=== PATIENT | female | born 1970 | race Caucasian/White ===

== ENCOUNTER 2017-02-12 01:29 | Emergency (ER) ==
[2017-02-12 01:30] VITALS: BMI 35.2
[2017-02-12] MEDS ORDERED: SODIUM CHLORIDE 1,000 ML IV STA (01:33)
[2017-02-12] MEDS ORDERED: ZOFRAN 4 MG/2 ML IVP STA (01:34)
[2017-02-12] MEDS ORDERED: ZANTAC IV STA (01:34)
[2017-02-12] MEDS ORDERED: [UNRECOGNIZED DRUG - OTHER] IV STA (01:34)
[2017-02-12] MEDS ORDERED: DILAUDID 1 MG/ML SYRINGE IVP STA ×2 (01:34→06:32)
[2017-02-12] MEDS ORDERED: PROTONIX IV IVP STA (01:34)
[2017-02-12] MEDS ORDERED: GI COCKTAIL PO STA (01:35)
[2017-02-12 01:42] LABS: BASOPHILS % (AUTO) 0.5 % (0.0-3.0); EOSINOPHILS # (AUTO) 0.1 K/ul (0.0-0.7); EOSINOPHILS % (AUTO) 1.6 % (0.0-7.0); HEMATOCRIT 36.3 % (37.0-47.0); HEMOGLOBIN 12.7 g/dl (12.0-16.0); IMMATURE GRANULOCYTE % (AUTO) 0.2 % (0.0-5.0); LYMPHOCYTES # (AUTO) 2.6 K/uL (0.60-3.4); MEAN CORPUSCULAR HEMOGLOBIN 30.4 pg (27.0-31.0); MEAN CORPUSCULAR VOLUME 86.8 fl (81.0-99.0); MONOCYTES # (AUTO) 0.5 K/uL (0.4-2.0); MONOCYTES % (AUTO) 10.6 (0-10); NEUTROPHILS # (AUTO) 1.2 K/ul (2.0-6.9); NEUTROPHILS % (AUTO) 27.1; PLATELET COUNT 158 10^3/uL (140-440); RED BLOOD COUNT 4.18 10^6/ul (4.20-5.40); WHITE BLOOD COUNT 4.33 K/ul (4.6-10.2)
[2017-02-12 01:51] LABS: SERUM PREGNANCY INTERNAL QC INTERNAL QC VALID
[2017-02-12 02:08] LABS: ALANINE AMINOTRANSFERASE 57 U/L (12-78); ALBUMIN 3.9 g/dL (3.4-5.0); ALKALINE PHOSPHATASE 78 U/L (42-98); AMYLASE 70 U/L (25-115); ANION GAP 13.5; ASPARTATE AMINO TRANSFERASE 49 U/L (15-37); BILIRUBIN,TOTAL 0.31 mg/dL (0.00-1.20); BLOOD UREA NITROGEN 11 mg/dL (7-18); BUN/CREATININE RATIO 13.75; CALCIUM 9.3 mg/dL (8.2-10.2); CARBON DIOXIDE 28 mmol/L (21-32); CHLORIDE 104 mmol/L (98-107); CREATINE KINASE 82 U/L; GLUCOSE 102 mg/dL (70-110); LIPASE 51 U/L (8-78); POTASSIUM 3.5 mmol/L (3.5-5.10); SODIUM 142 mmol/L (136-145); TOTAL PROTEIN 6.5 g/dL (6.4-8.2)
[2017-02-12] MEDS ORDERED: PEPCID 20 MG in SODIUM CHLORIDE 50 ML IV STA (02:17)
[2017-02-12] MEDS ORDERED: TORADOL IVP STA (03:05)
[2017-02-12] MEDS ORDERED: PHENERGAN 25 MG/ML VIAL 12.5 MG in SODIUM CHLORIDE 50 ML IV STA (03:06)
[2017-02-12] MEDS ORDERED: PEPCID ONE (03:07)
[2017-02-12] MEDS ORDERED: PHENERGAN 25 MG/ML VIAL ONE (03:08)
--- NOTE | 2017-02-12 03:26 | CT ---
EXAM: CTA thorax HISTORY: Chest. Pain COMPARISON: CTA thorax 09/08/2014 FINDINGS: Contiguous axial images obtained through the thorax following uneventful administration i ntravenous contrast utilizing 3-mm collimation. Sagittal and coronal reconstructions were imaged an d reviewed. Source images were utilized create rotating 3-D MIP images... The thoracic inlet is un remarkable. The ascending aorta is mildly ectatic measuring 3.4 cm. The descending thoracic aorta the same level measures 3.2 cm. There is no evidence of pericardial effusion.. There is no evidenc e of hilar or mediastinal lymphadenopathy. Small axillary lymph nodes are noted bilaterally. . The re is no evidence of pulmonary embolus. The lungs are clear bilaterally.. Degenerative changes ar e seen in the mid dorsal spine. IMPRESSION: No evidence of pulmonary embolus or active pulmonary disease.. Mildly ectatic ascending aorta.2
--- NOTE | 2017-02-12 03:34 | CT ---
EXAM: CT scan abdomen pelvis with contrast HISTORY: Epigastric pain COMPARISON: CT scan abdomen pelvis 07/04/2015 FINDINGS: Contiguous axial images obtained from lung bases to the symphysis pubis following unevent ful administration intravenous contrast utilizing 3-mm collimation. Sagittal and coronal reconstruc tions were imaged and reviewed. There has been prior cholecystectomy. The right lobe of liver is en larged which may represent normal variant. There is diffuse fatty infiltration within the liver. T he pancreas, spleen and adrenal glands have normal enhanced CT appearance. The kidneys excrete cont rast in a normal fashion bilaterally. The abdominal aorta is normal in course and caliber.. Redemo nstrated are mild mesenteric inflammatory changes within the root of the small bowel. Findings may be related to mesenteritis.. There is no adjacent bowel wall thickening or obstructive changes. P ostoperative changes are seen within the rectosigmoid colon. There has been prior hysterectomy. The re is a small umbilical hernia containing only fat. IMPRESSION: Enlarged right lobe of the liver with fatty infiltration. Prior cholecystectomy. Redemonstrated is probable mesenteritis. Postoperative changes sigmoid colon.
[2017-02-12 03:54] VITALS: BP 114/74; TEMP 98.3
[2017-02-12] MEDS ORDERED: NORCO 7.5-325 PO STA (04:27)
--- NOTE | 2017-02-12 05:57 | ED.PDOC ---
General ED Provider: Dr. JESSENIA JOSE-ER Chief Complaint: Chest Pain Stated Complaint: cordellt hurts into my back--im sick at my stomach Time Seen by Physician: 01:55 Mode of Arrival: Walk-In Information Source: Patient Exam Limitations: No limitations Primary Care Provider: JESSENIA JOSE Nursing and Triage Documentation Reviewed and Agree: Yes GI Complaint Exam - Abdominal Pain Complaint/Exam Onset: Gradual Duration: several hours Symptoms Are: Still present Timing: Intermittent Initial Severity: Mild Current Severity: Moderate Location of Pain: Discrete, Epigastric Radiates To: Reports: Back Character: Reports: Dull, Aching, Burning Aggravating: Reports: None Alleviating: Reports: None Associated Signs and Symptoms: Reports: Chest pain, Decreased appetite, Nausea, Vomiting. Denies: Diaphoresis, Fever, Cough, Dizziness, Back pain, Constipation , Blood in stool, Dysuria, Urinary frequency, Decreased urine output, Vaginal bleeding, Vaginal discharge, Diarrhea, Sore throat, Decreased activity Related History: Reports: Similar episode Surgical Obstruction Risk Factors: Reports: Prior abdominal surgery Related Surgical History: Reports: Cholecystectomy Patient Rh Status: Unknown Differential Diagnoses: Bowel Obstruction, Gastroenteritis, Pancreatitis, Other Quality Indicator For Non-Traumatic Chest Pain/Syncope: EKG Performed Review of Systems - Review Of Systems Constitutional: Reports: No symptoms Eyes: Reports: No symptoms Ears, Nose, Mouth, Throat: Reports: No symptoms Respiratory: Reports: No symptoms Cardiac: Reports: Chest pain GI: Reports: Nausea, Vomiting : Reports: No symptoms Musculoskeletal: Reports: No symptoms Skin: Reports: No symptoms Neurological: Reports: No symptoms Endocrine: Reports: No symptoms Hematologic/Lymphatic: Reports: No symptoms All Other Systems: Reviewed and Negative Past Medical History - Past Medical History Previously Healthy: No Endocrine: Reports: Hypothyroid Cardiovascular: Reports: None Respiratory: Reports: None Hematological: Reports: None Gastrointestinal: Reports: Diverticulitis Genitourinary: Reports: None Neuro/Psych: Reports: None Musculoskeletal: Reports: None Cancer: Reports: None Last Menstrual Period: 2002 - Surgical History General Surgical History: Reports: None - Family History Family History: Reports: None - Social History Smoking Status: Never smoker Hx Substance Use: No Alcohol Screening: Occasionally Lives: With family - Immunizations Tetanus Shot up to Date: No Physical Exam - Physical Exam Appearance: Well-appearing, No pain distress, Well-nourished Pain Distress: Moderate Eyes: SAVANNA, EOMI, Conjunctiva clear ENT: Ears normal Neck: Supple Respiratory: Airway patent, Breath sounds clear, Breath sounds equal, Respirations nonlabored Cardiovascular: RRR, Pulses normal, No rub, No murmur GI/: Soft, Nontender, No masses, Bowel sounds normal, No Organomegaly Musculoskeletal: Normal strength, ROM intact, No edema, No calf tenderness Skin: Warm, Dry, Normal color Neurological: Sensation intact, Motor intact, Reflexes intact, Cranial nerves intact, Alert, Oriented Psychiatric: Affect appropriate, Mood appropriate Interpretation - Radiology Interpretation Radiology Interpretation By: Radiologist Radiology Results: Negative Exam Interpreted: CT Scan Re-Evaluation - Re-Evaluation Status: Improved Vital Signs Stable: Yes Pain Level: 1 Appearance: NAD Lungs: Clear Skin: Warm and Dry Neuro: Alert and Oriented X3 CV: RRR Critical Care Note - Critical Care Note Total Time (mins): 0 Course - Course Hematology/Chemistry: 02/12/17 01:35 02/12/17 01:35 Orders, Labs, Meds: Lab Review 02/12/17 02/12/17 01:35 05:33 WBC 4.33 L RBC 4.18 L Hgb 12.7 Hct 36.3 L MCV 86.8 MCH 30.4 MCHC 35.0 RDW Coeff of Giovana 13.1 Plt Count 158 Immature Gran % (Auto) 0.2 Neut % (Auto) 27.1 Lymph % (Auto) 60.0 H [place] % (Auto) 10.6 H Eos % (Auto) 1.6 Baso % (Auto) 0.5 Immature Gran # (Auto) 0.0 Neut # 1.2 L Lymph # 2.6 [place] # 0.5 Eos # 0.1 Baso # 0.0 Sodium 142 Potassium 3.5 Chloride 104 Carbon Dioxide 28 Anion Gap 13.5 BUN 11 Creatinine 0.80 Estimated GFR (MDRD) 78.00 BUN/Creatinine Ratio 13.75 Glucose 102 Calcium 9.3 Total Bilirubin 0.31 AST 49 H ALT 57 Alkaline Phosphatase 78 Total Creatine Kinase 82 69 Troponin I < 0.0100 < 0.0100 Total Protein 6.5 Albumin 3.9 Globulin 2.6 Albumin/Globulin Ratio 1.50 Amylase 70 Lipase 51 Serum , Qual Negative Orders Category Date Time Status EKG-(ED ONLY) Stat CARDIO 02/12/17 01:33 Completed EKG-(ED ONLY) Stat CARDIO 02/12/17 05:00 Ordered NPO REMINDER: IMAGING ONCE CARE 02/12/17 01:35 Completed ED IV/MEDIPORT/POWERPORT .ONCE EMERGENCY 02/12/17 01:33 Active AMYLASE Stat LAB 02/12/17 01:35 Completed CBC W/ AUTO DIFF Stat LAB 02/12/17 01:35 Completed COMPREHENSIVE METABOLIC PANEL Stat LAB 02/12/17 01:35 Completed CREATINE KINASE Stat LAB 02/12/17 01:35 Completed CREATINE KINASE Stat LAB 02/12/17 05:33 Completed LIPASE Stat LAB 02/12/17 01:35 Completed SERUM Stat LAB 02/12/17 01:35 Completed TROPONIN I Stat LAB 02/12/17 01:35 Completed TROPONIN I Stat LAB 02/12/17 05:33 Completed 0.9 % Sodium Chloride [Saline Flush] MEDS 02/12/17 01:33 Ordered 1 syr IVF PRN PRN Famotidine Inj [Pepcid] MEDS 02/12/17 03:07 Discontinued 20 mg .ROUTE .STK-MED ONE Famotidine Inj [Pepcid] 20 mg MEDS 02/12/17 02:17 Discontinued 0.9 % Sodium Chloride [Sodium Chloride] 50 ml IV ONCE Hydrocodone Bit/Acetaminophen [[place] 7.5-325] MEDS 02/12/17 04:27 Discontinued 1 tab PO ONCE STA Hydromorphone HCl [Dilaudid 1 mg/ml Syringe] MEDS 02/12/17 01:34 Discontinued 1 mg IVP ONCE STA Ketorolac Tromethamine [Toradol] MEDS 02/12/17 03:05 Discontinued 30 mg IVP ONCE STA Mag-Al Plus//Lidocaine [Gi Cocktail] MEDS 02/12/17 01:35 Discontinued 30 ml PO ONCE STA Ondansetron HCl/Pf [Zofran 4 mg/2 ml] MEDS 02/12/17 01:34 Discontinued 4 mg IVP ONCE STA Pantoprazole Sodium [Protonix IV] MEDS 02/12/17 01:34 Discontinued 40 mg IVP ONCE STA Promethazine HCl [Phenergan 25 mg/ml Vial] MEDS 02/12/17 03:08 Discontinued 25 mg .ROUTE .STK-MED ONE Promethazine HCl [Phenergan 25 mg/ml Vial] 12.5 mg MEDS 02/12/17 03:06 Discontinued 0.9 % Sodium Chloride [Sodium Chloride] 50 ml IV ONCE Ranitidine in 0.45 % Sodium [Zantac 50 mg/50 ml] 50 mg MEDS 02/12/17 01:34 Discontinued Premix 50 ml 1/2Ns 1 bag IV ONCE Sodium Chloride 0.9% [Sodium Chloride] 1,000 ml MEDS 02/12/17 01:33 Active IV 100 mls/hr CT ABDOMEN/PELVIS W CONTRAST Stat RADS 02/12/17 01:[address] CHEST PE PROTOCOL Stat RADS 02/12/17 01:35 Completed Medications Generic Name Dose Route Start Last Admin Trade Name Freq PRN Reason Stop Dose Admin Sodium Chloride 1,000 mls @ 100 mls/hr 02/12/17 01:33 02/12/17 02:15 Sodium Chloride IV 02/12/17 11:32 100 mls/hr .Q10H STA Administration Sodium Chloride 1 syr 02/12/17 01:33 02/12/17 03:05 Saline Flush IVF 1 syr PRN PRN Administration To flush IV Discontinued Medications Generic Name Dose Route Start Last Admin Trade Name Freq PRN Reason Stop Dose Admin Acetaminophen/Hydrocodone Bitart 1 tab 02/12/17 04:27 02/12/17 04:34 [place] 7.5-325 PO 02/12/17 04:28 1 tab ONCE STA Administration Al Hydroxide/Mg Hydroxide 30 ml 02/12/17 01:35 02/12/17 02:14 Gi Cocktail PO 02/12/17 01:36 30 ml ONCE STA Administration Hydromorphone HCl 1 mg 02/12/17 01:34 02/12/17 02:14 Dilaudid 1 Mg/Ml Syringe IVP 02/12/17 01:35 1 mg ONCE STA Administration Ranitidine HCl/Sodium Chloride 50 mls @ 100 mls/hr 02/12/17 01:34 02/12/17 02 :16 50 mg/ Sodium Chloride IV 02/12/17 02:03 Not Given ONCE STA Famotidine 20 mg/ Sodium 52 mls @ 100 mls/hr 02/12/17 02:17 02/12/17 03:04 Chloride IV 02/12/17 02:48 100 mls/hr ONCE STA Administration Promethazine HCl 12.5 mg/ 50.5 mls @ 75 mls/hr 02/12/17 03:06 02/12/17 03:18 Sodium Chloride IV 02/12/17 03:46 75 mls/hr ONCE STA Administration Ketorolac Tromethamine 30 mg 02/12/17 03:05 02/12/17 03:18 Toradol IVP 02/12/17 03:06 30 mg ONCE STA Administration Ondansetron HCl 4 mg 02/12/17 01:34 02/12/17 02:15 Zofran 4 Mg/2 Ml IVP 02/12/17 01:35 4 mg ONCE STA Administration Pantoprazole Sodium 40 mg 02/12/17 01:34 02/12/17 02:15 Protonix Iv IVP 02/12/17 01:35 40 mg ONCE STA Administration Vital Signs: Temp Pulse Resp BP Pulse Ox 02/12/17 03:53 98.3 F 51 L 18 114/74 94 L 02/12/17 01:50 97.9 F 53 L 18 137/99 H 96 Departure - Departure Time of Disposition: 06:18 Disposition: TSF SHORT-TRM HOSP Discharge Problem: Chest pain, Backache Instructions: Chest Pain (ED) Condition: Good Pt referred to PMD for follow-up: Yes Allergies/Adverse Reactions: Allergies morphine Adverse Reaction (Verified 02/12/17 01:56) Vomiting causes nausea Home Medications: Ambulatory Orders Gabapentin [Neurontin] 600 mg PO TID PRN 07/04/15 Transfer Form Completed: Yes Disposition Discussed With: Patient
[2017-02-12 06:03] LABS: CREATINE KINASE 69 U/L
[2017-02-12] MEDS ORDERED: ASPIRIN EC PO STA (06:32)
== END 2017-02-12 07:15 | disposition short-term general hospital (02) ==
LOC: ED 01:29
DX: R07.9 Chest pain, unspecified (principal); M54.9 Dorsalgia, unspecified; R10.13 Epigastric pain; R11.2 Nausea with vomiting, unspecified; E03.9 Hypothyroidism, unspecified; R00.1 Bradycardia, unspecified
CPT/HCPCS: 36415; 80053; 82150; 82550; 83690; 84484; 84703; 85025; 93005; 93010; 96361; 96365; 96366; 96375; 96376; 99285

== ENCOUNTER 2018-01-14 00:28 | Emergency (ER) ==
[2018-01-14] MEDS ORDERED: SODIUM CHLORIDE 500 ML IV STA (00:36)
[2018-01-14] MEDS ORDERED: DILAUDID 0.5 MG/0.5 ML SYRINGE IVP STA ×2 (00:36→02:21)
[2018-01-14] MEDS ORDERED: ZOFRAN 4 MG/2 ML IVP STA (00:37)
[2018-01-14 01:27] VITALS: TEMP 98.1; BMI 38.4
[2018-01-14] MEDS ORDERED: PHENERGAN 25 MG/ML VIAL 25 MG in SODIUM CHLORIDE 50 ML IV STA (02:22)
[2018-01-14] MEDS ORDERED: PHENERGAN 25 MG/ML VIAL ONE (02:24)
--- NOTE | 2018-01-14 03:12 | CT ---
EXAM: CT scan abdomen pelvis with contrast HISTORY: Abdominal pain COMPARISON: CT scan abdomen pelvis 02/12/2017 FINDINGS: Contiguous axial images were obtained through the abdomen pelvis following uneventful admi nistration intravenous contrast utilizing 3-mm collimation.. Sagittal and coronal reconstructions we re imaged and reviewed. There is minimal atelectasis versus scarring inferior lingular segment. The right lobe of liver is enlarged with diffuse fatty infiltration. There has been prior cholecystectom y. The pancreas spleen and adrenal glands have normal enhanced CT appearance.. The abdominal aorta is normal in course and caliber without aneurysm formation. There has been prior hysterectomy.. Pos toperative changes are seen in relation to the rectosigmoid colon. Redemonstrated are stable finding s within the small bowel mesentery which demonstrates mild haziness with several lymph nodes.. There is a small fat-containing umbilical hernia. IMPRESSION: Status post cholecystectomy and hysterectomy. Enlarged right lobe of liver with diffuse fatty infiltration. Postop changes rectosigmoid colon. Stable haziness within the small bowel mesentery
[2018-01-14 03:21] VITALS: BP 133/78
--- NOTE | 2018-01-14 03:43 | ED.PDOC ---
General ED Provider: Dr. JESSENIA JOSE-ER Chief Complaint: Abdominal Pain Stated Complaint: im hurting and i think it might be a hernia Time Seen by Physician: 01:10 Mode of Arrival: Walk-In Information Source: Patient Exam Limitations: No limitations Primary Care Provider: JESSENIA JOSE Nursing and Triage Documentation Reviewed and Agree: Yes Does patient meet sepsis criteria?: No System Inflammatory Response Syndrome: Not Applicable Sepsis Protocol: For patient's 13 years and over: Temp is 96.8 and below OR 101 and greater Pulse >90 BPM Resp >20/minute Acutely Altered Mental Status Are patient's symptoms suggestive of a new infection, such as: -Pneumonia -Skin, Soft Tissue -Endocarditis -UTI -Bone, Joint Infection -Implantable Device -Acute Abdominal Infection -Wound Infection -Meningitis -Blood Stream Catheter Infection -Unknown GI Complaint Exam - Abdominal Pain Complaint/Exam Onset: Gradual Duration: several hours Symptoms Are: Still present Initial Severity: Mild Current Severity: Moderate Location of Pain: Diffuse Character: Reports: Dull Aggravating: Reports: None Associated Signs and Symptoms: Denies: Diaphoresis, Fever, Cough, Chest pain, Dizziness, Back pain, Constipation, Blood in stool, Dysuria, Urinary frequency, Decreased urine output, Decreased appetite, Vaginal bleeding, Vaginal discharge , Nausea, Vomiting, Diarrhea, Sore throat, Decreased activity Review of Systems - Review Of Systems Constitutional: Reports: No symptoms Eyes: Reports: No symptoms Ears, Nose, Mouth, Throat: Reports: No symptoms Respiratory: Reports: No symptoms Cardiac: Reports: No symptoms GI: Reports: Abdominal pain : Reports: No symptoms Musculoskeletal: Reports: No symptoms Skin: Reports: No symptoms Neurological: Reports: No symptoms Endocrine: Reports: No symptoms Hematologic/Lymphatic: Reports: No symptoms All Other Systems: Reviewed and Negative Past Medical History - Past Medical History Previously Healthy: No Endocrine: Reports: Hypothyroid Cardiovascular: Reports: None Respiratory: Reports: None Hematological: Reports: None Gastrointestinal: Reports: Diverticulitis Genitourinary: Reports: None Neuro/Psych: Reports: None Musculoskeletal: Reports: None Cancer: Reports: None Last Menstrual Period: 2002 hysterectomy - Surgical History General Surgical History: Reports: None - Family History Family History: Reports: None - Social History Smoking Status: Never smoker Hx Substance Use: No Alcohol Screening: Occasionally - Immunizations Tetanus Shot up to Date: Yes Physical Exam - Physical Exam Appearance: Well-appearing, No pain distress, Well-nourished Pain Distress: Mild Eyes: SAVANNA ENT: Ears normal, Nose normal, Oropharynx normal Neck: Supple Respiratory: Airway patent, Breath sounds clear, Breath sounds equal, Respirations nonlabored Cardiovascular: RRR, Pulses normal, No rub, No murmur GI/: Soft Musculoskeletal: Normal strength Skin: Warm, Dry, Normal color Neurological: Sensation intact, Motor intact, Reflexes intact, Cranial nerves intact, Alert, Oriented Psychiatric: Affect appropriate, Mood appropriate Interpretation - Radiology Interpretation Radiology Interpretation By: Radiologist Radiology Results: Negative Exam Interpreted: CT Scan - EKG Interpretation Time of EKG #1: 03:43 Rate: [place] Rhythm: Sinus Ectopy: None [place]: NL ST Segment: Normal Interpretation: sinus deion Critical Care Note - Critical Care Note Total Time (mins): 0 Course - Course Hematology/Chemistry: 01/14/18 00:55 01/14/18 00:55 Orders, Labs, Meds: Lab Review 01/14/18 01/14/18 01/14/18 00:55 00:55 02:05 WBC 7.91 RBC 4.28 Hgb 12.6 Hct 37.4 MCV 87.4 MCH 29.4 MCHC 33.7 RDW Coeff of Giovana 12.7 Plt Count 195 Immature Gran % (Auto) 0.4 Neut % (Auto) 51.5 Lymph % (Auto) 39.3 [place] % (Auto) 5.8 Eos % (Auto) 2.1 Baso % (Auto) 0.9 Immature Gran # (Auto) 0.0 Neut # (Auto) 4.1 Lymph # (Auto) 3.1 [place] # (Auto) 0.5 Eos # (Auto) 0.2 Baso # (Auto) 0.1 Sodium 139 Potassium 3.6 Chloride 105 Carbon Dioxide 26 Anion Gap 11.6 BUN 14 Creatinine 0.81 Estimated GFR (MDRD) 76.00 BUN/Creatinine Ratio 17.28 Glucose 146 H Calcium 9.4 Total Bilirubin 0.5 AST 24 ALT 27 Alkaline Phosphatase 78 Total Creatine Kinase 80 Troponin I < 0.0100 Total Protein 7.0 Albumin 3.8 Globulin 3.2 Albumin/Globulin Ratio 1.19 Amylase 77 Lipase 45 Urine Color Yellow Urine Clarity Clear Urine pH 6.5 Ur Specific [place] 1.015 Urine Protein Negative Urine Glucose (UA) Negative Urine Ketones Negative Urine Blood Negative Urine Nitrite Negative Urine Bilirubin Negative Urine Urobilinogen 0.2 Ur Leukocyte Esterase Negative Orders Category Date Time Status EKG-(ED ONLY) Stat CARDIO 01/14/18 00:35 Ordered NPO REMINDER: IMAGING ONCE CARE 01/14/18 00:36 Completed ED IV/MEDIPORT/POWERPORT .ONCE EMERGENCY 01/14/18 00:36 Active AMYLASE Stat LAB 01/14/18 00:55 Completed CBC W/ AUTO DIFF Stat LAB 01/14/18 00:55 Completed COMPREHENSIVE METABOLIC PANEL Stat LAB 01/14/18 00:55 Completed CREATINE KINASE Stat LAB 01/14/18 00:55 Completed LIPASE Stat LAB 01/14/18 00:55 Completed TROPONIN I Stat LAB 01/14/18 00:55 Completed URINALYSIS C & S IF INDICATED Stat LAB 01/14/18 02:05 Completed 0.9 % Sodium Chloride [Saline Flush] MEDS 01/14/18 00:36 Ordered 1 syr IVF PRN PRN Hydromorphone HCl [Dilaudid 0.5 mg/0.5 ml Syringe] MEDS 01/14/18 00:36 Discontinued 1 mg IVP ONCE STA Hydromorphone HCl [Dilaudid 0.5 mg/0.5 ml Syringe] MEDS 01/14/18 02:21 Discontinued 1 mg IVP ONCE STA Ondansetron HCl/Pf [Zofran 4 mg/2 ml] MEDS 01/14/18 00:37 Discontinued 4 mg IVP ONCE STA Promethazine HCl [Phenergan 25 mg/ml Vial] MEDS 01/14/18 02:24 Discontinued 25 mg .ROUTE .STK-MED ONE Promethazine HCl [Phenergan 25 mg/ml Vial] 25 mg MEDS 01/14/18 02:22 Discontinued 0.9 % Sodium Chloride [Sodium Chloride] 50 ml IV ONCE Sodium Chloride 0.9% [Sodium Chloride] 500 ml MEDS 01/14/18 00:[address] ABDOMEN/PELVIS W CONTRAST Stat RADS 01/14/18 00:36 Completed Medications Generic Name Dose Route Start Last Admin Trade Name Freq PRN Reason Stop Dose Admin Sodium Chloride 1 syr 01/14/18 00:36 Saline Flush IVF PRN PRN To flush IV Discontinued Medications Generic Name Dose Route Start Last Admin Trade Name Freq PRN Reason Stop Dose Admin Hydromorphone HCl 1 mg 01/14/18 00:36 01/14/18 01:47 Dilaudid 0.5 Mg/0.5 Ml Syringe IVP 01/14/18 00:37 1 mg ONCE STA Administration Hydromorphone HCl 1 mg 01/14/18 02:21 01/14/18 02:35 Dilaudid 0.5 Mg/0.5 Ml Syringe IVP 01/14/18 02:22 1 mg ONCE STA Administration Sodium Chloride 500 mls @ 500 mls/hr 01/14/18 00:36 01/14/18 01:47 Sodium Chloride IV 01/14/18 01:35 500 mls/hr BOLUS STA Administration Promethazine HCl 25 mg/ Sodium 51 mls @ 75 mls/hr 01/14/18 02:22 01/14/18 02: 36 Chloride IV 01/14/18 03:02 75 mls/hr ONCE STA Administration Ondansetron HCl 4 mg 01/14/18 00:37 01/14/18 01:47 Zofran 4 Mg/2 Ml IVP 01/14/18 00:38 4 mg ONCE STA Administration Vital Signs: Temp Pulse Resp BP Pulse Ox 01/14/18 03:20 58 L 16 133/78 95 01/14/18 01:03 98.1 F 90 20 151/91 H 98 Departure - Departure Time of Disposition: 03:43 Disposition: HOME SELF-CARE Discharge Problem: Abdominal pain Instructions: Abdominal Pain (ED) Condition: Good Pt referred to PMD for follow-up: Yes IPMP verified?: No Additional Instructions: f/u surgeon Allergies/Adverse Reactions: Allergies morphine Adverse Reaction (Verified 02/12/17 01:56) Vomiting causes nausea Home Medications: Ambulatory Orders Gabapentin [Neurontin] 600 mg PO TID PRN 07/04/15 Disposition Discussed With: Patient, Family
== END 2018-01-14 03:51 | disposition home or self-care (01) ==
LOC: ED 00:28
DX: R10.84 Generalized abdominal pain (principal); E03.9 Hypothyroidism, unspecified
CPT/HCPCS: 36415; 80053; 81001; 82150; 82550; 83690; 84484; 85025; 93005; 93010; 96361; 96365; 96375; 99284

== ENCOUNTER 2023-05-22 18:05 | Observation (INO) ==
--- NOTE | 2023-05-22 18:25 | ED.PDOC ---
General ED Provider: Dr. MICAH RUTLEDGE MD Chief Complaint: Chest Pain Stated Complaint: Patient with history of hypertension states she has been noncompliant for medication losartan for the past year complains of acute onset of substernal pressure heaviness pain scale 8/10 onset 45 minutes ago. Patient denies radiation pain to her neck, jaw, arms. Patient also complains of nausea, headache, left upper abdominal pain. Patient had previous appendectomy, cholecystectomy, hysterectomy, and for abdominal hernia repair. Patient denies diaphoresis, dyspnea, palpitations. Time Seen by Provider: 05/22/23 18:24 Mode of Arrival: Walk-In Information Source: Patient Primary Care Provider: JESSENIA JOSE Nursing and Triage Documentation Reviewed and Agree: Yes Review of Systems Review Of Systems Constitutional: Reports No symptoms Eyes: Reports No symptoms Ears, Nose, Mouth, Throat: Reports No symptoms Respiratory: Reports No symptoms Cardiac: Reports Chest pain GI: Reports Abdominal pain and Nausea : Reports No symptoms Musculoskeletal: Reports No symptoms Skin: Reports No symptoms Neurological: Reports No symptoms and Headache Endocrine: Reports No symptoms Hematologic/Lymphatic: Reports No symptoms All Other Systems: Reviewed and Negative [facility] Medical History Hypothyroidism E03.9 - Hypothyroidism, unspecified (ICD-10) IBS (irritable bowel syndrome) K58.9 - Irritable bowel syndrome without diarrhea (ICD-10) Social History Smoking and tobacco status: Never smoker Alcohol intake: never Surgical History H/O: hysterectomy Z90.710 - Acquired absence of both cervix and uterus (ICD-10) Hx of appendectomy Z90.49 - Acquired absence of other specified parts of digestive tract (ICD- 10) History of cholecystectomy Z90.49 - Acquired absence of other specified parts of digestive tract (ICD- 10) H/O hernia repair Z98.890 - Other specified postprocedural states (ICD-10) Z87.19 - Personal history of other diseases of the digestive system (ICD-10) Female Reproductive History Menstrual Hx Hysterectomy: Yes Hx Tubal Ligation: Yes Physical Exam Physical Exam Appearance: Reports Well-appearing Ill-appearing: Moderate Pain Distress: None Eyes: Reports SAVANNA and EOMI ENT: Reports Ears normal and Nose normal Neck: Supple Respiratory: Reports Airway patent, Breath sounds clear and Breath sounds equal Cardiovascular: Reports RRR, Pulses normal, No rub and No murmur GI/: Reports Soft, No masses, Bowel sounds normal and Tender (There is minimal epigastric and left upper quadrant tenderness without guarding or palpable mass noted.) Musculoskeletal: Reports Normal strength, ROM intact, No edema and No calf tenderness Skin: Reports Warm and Dry Neurological: Reports Sensation intact, Motor intact, Reflexes intact, Cranial nerves intact, Alert and Oriented Psychiatric: Reports Affect appropriate Interpretation EKG Interpretation Time of EKG #1: 18:10 Rate: Normal Rhythm: Sinus Ectopy: None [place]: [place] Interpretation: Normal sinus rhythm rate of 62, there is no ischemic changes there is no ec EKG Interpretation By: ED Physician Time of EKG #2: 20:29 Rate: Normal Rhythm: Sinus Ectopy: None [place]: [place] ST Segment: Normal EKG Interpretation: Sinus bradycardia rate is 65 ectopy or ischemic changes Radiology Interpretation Radiology Interpretation By: Radiologist Radiology Results: Negative Exam Interpreted: Portable CXR Re-Evaluation Re-Evaluation Time of Re-Evaluation: 22:30 Status: Improved Vital Signs Stable: Yes Pain Level: Patient history is improved down to a 5/10 patient continues to have epigas Re-Evaluation Time of Re-Evaluation: 23:55 Status: Improved Vital Signs Stable: Yes Pain Level: Pain scale improved from 8/10 down to 3/10 Physician Notification Case Discussed Physician Notified: Discussed with hospitalist Lyly Serna Time of Notification: 23:55 Comments: For admit to observation for rule out chest pain Critical Care Note Critical Care Note Total Critical Care Time (mins): 0 Course Course 05/22/23 20:05 05/22/23 18:32 Orders, Labs, Meds: Lab Review 05/22/23 05/22/23 05/22/23 18:32 20:05 20:10 WBC 7.81 RBC 4.46 Hgb 13.2 Hct 39.3 MCV 88.1 MCH 29.6 MCHC 33.6 RDW Coeff of Giovana 12.9 Plt Count 226 Immature Gran % (Auto) 0.3 Neut % (Auto) 41.2 L Lymph % (Auto) 47.8 [place] % (Auto) 7.7 Eos % (Auto) 2.0 Baso % (Auto) 1.0 Neut # (Auto) 3.2 Lymph # (Auto) 3.7 H [place] # (Auto) 0.6 Eos # (Auto) 0.2 Baso # (Auto) 0.1 Immature Gran # (Auto) 0.0 PT 9.5 INR 0.91 Sodium 137.4 Potassium 3.77 Chloride 104.3 Carbon Dioxide 27.5 Anion Gap 9.37 BUN 11.3 Creatinine 0.68 Estimated GFR (MDRD) 91.00 BUN/Creatinine Ratio 16.61 Glucose 108.3 H Calcium 9.12 Total Bilirubin 0.55 AST 40.7 H ALT 30.4 Alkaline Phosphatase 91.0 Troponin I 0.064 Total Protein 7.92 Albumin 4.59 Globulin 3.33 Albumin/Globulin Ratio 1.37 Lipase 220.9 D-Dimer Urine Color Yellow Urine Clarity Clear Urine pH 7.0 Ur Specific [place] 1.020 Urine Protein Negative Urine Glucose (UA) Negative Urine Ketones Negative Urine Blood Negative Urine Nitrite Negative Urine Bilirubin Negative Urine Urobilinogen 0.2 Ur Leukocyte Esterase Trace H Urine Microscopic RBC 0-2 Urine Microscopic WBC 0-2 Ur Squamous Epith Cells 0-2 05/22/23 21:05 WBC RBC Hgb Hct MCV MCH MCHC RDW Coeff of Giovana Plt Count Immature Gran % (Auto) Neut % (Auto) Lymph % (Auto) [place] % (Auto) Eos % (Auto) Baso % (Auto) Neut # (Auto) Lymph # (Auto) [place] # (Auto) Eos # (Auto) Baso # (Auto) Immature Gran # (Auto) PT INR Sodium Potassium Chloride Carbon Dioxide Anion Gap BUN Creatinine Estimated GFR (MDRD) BUN/Creatinine Ratio Glucose Calcium Total Bilirubin AST ALT Alkaline Phosphatase Troponin I 0.065 Total Protein Albumin Globulin Albumin/Globulin Ratio Lipase D-Dimer 234.91 Urine Color Urine Clarity Urine pH Ur Specific [place] Urine Protein Urine Glucose (UA) Urine Ketones Urine Blood Urine Nitrite Urine Bilirubin Urine Urobilinogen Ur Leukocyte Esterase Urine Microscopic RBC Urine Microscopic WBC Ur Squamous Epith Cells Orders Category Date Time Status EKG-(ED ONLY) Stat CARDIO 05/22/23 18:35 Completed EKG-(ED ONLY) Stat CARDIO 05/22/23 20:52 Ordered CBC W/ AUTO DIFF Stat LAB 05/22/23 20:05 Completed CMP [COMPREHENSIVE METABOLIC PANEL] Stat LAB 05/22/23 18:32 Completed D-DIMER Stat LAB 05/22/23 21:05 Completed LIPASE Stat LAB 05/22/23 18:32 Completed PT WITH INR Stat LAB 05/22/23 20:10 Completed TROPONIN I Stat LAB 05/22/23 18:32 Completed TROPONIN I Stat LAB 05/22/23 21:05 Completed URINALYSIS C & S IF INDICATED Stat LAB 05/22/23 18:32 Completed Aspirin [Aspirin Chewable] Meds 05/22/23 20:08 Discontinued 324 mg PO ONCE STA Fentanyl Citrate/Pf [Sublimaze] Meds 05/22/23 23:01 Discontinued 50 mcg IVP ONCE ONE Nitroglycerin [Nitro-Bid] Meds 05/22/23 22:42 Discontinued 1 inch TD ONCE STA Nitroglycerin [Nitrostat] Meds 05/22/23 18:35 Active 0.4 mg SL Q5MIN X 3 DOSES PRN Ondansetron HCl/Pf [Zofran 4 mg/2 ml] Meds 05/22/23 18:32 Discontinued 4 mg IVP ONCE STA Ondansetron HCl/Pf [Zofran 4 mg/2 ml] Meds 05/22/23 22:42 Discontinued 4 mg IVP ONCE STA Pantoprazole Sodium [Protonix IV] Meds 05/22/23 18:32 Discontinued 40 mg IVP ONCE STA Sodium Chloride 0.9% [Sodium Chloride] 500 ml Meds 05/22/23 18:32 Active IV BOLUS CHEST, 1V AP ONLY Stat RADS 05/22/23 18:[address] ABDOMEN/PELVIS WO CONTRAST Stat RADS 05/22/23 18:33 Completed Medications Generic Name Dose Route Start Last Admin Trade Name Freq PRN Reason Stop Dose Admin Sodium Chloride 500 mls @ 50 mls/hr 05/22/23 18:32 Sodium Chloride IV 05/23/23 04:31 BOLUS STA Nitroglycerin 0.4 mg 05/22/23 18:35 05/22/23 21:56 Nitroglycerin 0.4 Mg Tab.Subl SL 0.4 mg Q5MIN X 3 DOSES PRN Administration Chest Pain Discontinued Medications Generic Name Dose Route Start Last Admin Trade Name Freq PRN Reason Stop Dose Admin Aspirin 324 mg 05/22/23 20:08 05/22/23 21:24 Aspirin 81 Mg Tab.Chew PO 05/22/23 20:09 324 mg ONCE STA Administration Fentanyl Citrate 50 mcg 05/22/23 23:01 Fentanyl 50 Mcg/Ml Sdv IVP 05/22/23 23:02 ONCE ONE Nitroglycerin 1 inch 05/22/23 22:42 05/22/23 23:43 Nitroglycerin 1 Gm Oint TD 05/22/23 22:43 1 inch ONCE STA Administration Ondansetron HCl 4 mg 05/22/23 18:32 05/22/23 20:38 Ondansetron Hcl/Pf 4 Mg/2 Ml Sdv IVP 05/22/23 18:33 4 mg ONCE STA Administration Ondansetron HCl 4 mg 05/22/23 22:42 05/22/23 23:42 Ondansetron Hcl/Pf 4 Mg/2 Ml Sdv IVP 05/22/23 22:43 4 mg ONCE STA Administration Pantoprazole Sodium 40 mg 05/22/23 18:32 05/22/23 20:37 Pantoprazole Sodium 40 Mg Vial IVP 05/22/23 18:33 40 mg ONCE STA Administration Vital Signs: Temp Pulse Resp BP Pulse Ox 05/22/23 22:00 62 16 132/82 98 05/22/23 18:14 98.1 F 56 L 15 173/99 H 99 RICO Risk Score Age >/= 65: No >/= 3 CAD Risk Factors: No Known CAD (Stenosis >/= 50%): No ASA Use in Past 7 Days: No Severe Angina (>/= 2 episodes in 24 hours): No EKG ST Changes >/= 0.5mm: No Postive Cardiac Marker: No RICO Total Score: 0 RICO Risk Score: Risk Score Odds of by 30D 0 0.1 (0.1-0.2) 1 0.3 (0.2-0.3) 2 0.4 (0.3-0.5) 3 0.7 (0.6-0.9) 4 1.2 (1.0-1.5) 5 2.2 (1.9-2.6) 6 3.0 (2.5-3.6) 7 4.8 (3.8-6.1) Discharge Plan Discharge Patient Disposition: PLACED OBSERVATION Discharge Problem: Acute chest pain Abdominal pain Qualifiers: Abdominal location: epigastric Qualified Code(s): R10.13 - Epigastric pain Prescriptions: No Action No Reported Medications Did you review [place] TOSSER for ALL controlled substances?: Not Applicable ED Provider: MICAH RUTLEDGE Physician Progress Note: History obtained from the patient with a history of hypertension, patient has been noncompliant for medication losartan for the past year complains of substernal chest pain heaviness over the past 45 minutes rates her pain scale 8/10. Has associated headache and nausea and left upper abdominal pain. Patient denies radiation of the pain to her neck, jaw, arms. Denies vomiting, blurred vision, palpitations, diaphoresis, diarrhea. Patient with previous cholecystectomy, hysterectomy, appendectomy, and abdominal hernias repair x 4 EKG obtained which is consistent with normal sinus rhythm rate of 68 there is no ischemic changes axis is normal there is no ectopy noted. IV established normal saline 500 mL at 50 mL/hour, patient ministered Zofran 4 mg IV, Protonix 40 mg IV followed by aspirin 324 mg orally Laboratory data troponin 0.064, lipase 220, the BMP is normal limits, The abdominal pelvic CT scan without intravenous contrast is consistent with a 9 mm rim calcified splenic aneurysm there is no acute intra-abdominal or pelvic process. Stable nonspecific central mesenteric stranding, there is no bowel obstruction free air or free fluid noted. Patient given nitroglycerin sublingual 0.4 mg x 2 with minimal relief Nitropaste 1 inch applied anterior chest wall Fentanyl 50 mcg IV with moderate pain relief. 183-troponin 0.064 1809-EKG consistent with normal sinus rhythm rate of 62 normal axis there is no prolongation of [place] QT interval and there is no AP, there is no ischemic changes noted. 2058-EKG consistent with normal sinus rhythm rate of 60 sinus bradycardia there is no ischemic changes, there is ectopy, axis normal. Dr. Ornelas available for consultation Discussed with hospitalist Lyly Serna at 2350 4 observation to rule out, chest pain Differential diagnosis: 1) acute chest pain 2) abdominal pain []
[2023-05-22] MEDS ORDERED: ZOFRAN 4 MG/2 ML IVP STA ×2 (18:32→22:42)
[2023-05-22] MEDS ORDERED: PROTONIX IVP STA (18:32)
[2023-05-22] MEDS ORDERED: SODIUM CHLORIDE 500 ML IV STA (18:32)
[2023-05-22 19:30] LABS: ALANINE AMINOTRANSFERASE 30.4 U/L (0-35); ALBUMIN 4.59 g/dL (3.5-5.0); ASPARTATE AMINO TRANSFERASE 40.7 U/L (14-36); BILIRUBIN,TOTAL 0.55 mg/dL (0.2-1.3); BLOOD UREA NITROGEN 11.3 mg/dL (7-17); CALCIUM 9.12 mg/dL (8.4-10.2); CARBON DIOXIDE 27.5 mmol/L (22-30.0); CHLORIDE 104.3 mmol/L (98-107); CREATININE 0.68 mg/dL (0.60-1.30); GLUCOSE 108.3 mg/dL (74-106); LIPASE 220.9 U/L (23-300); POTASSIUM 3.77 mmol/L (3.5-5.1); SODIUM 137.4 mmol/L (134.5-145); TOTAL PROTEIN 7.92 g/dL (6.3-8.2)
--- NOTE | 2023-05-22 19:36 | DI ---
EXAM: SINGLE VIEW OF THE CHEST. History: Dyspnea. Comparison: Chest radiograph 06/03/2022 FINDINGS: Heart size is normal. No consolidation. No pleural fluid and no pneumothorax. No acute osseous abnormalities. Impression: Normal study
[2023-05-22 19:41] LABS: TROPONIN I 0.064 ng/ml (0.0000-0.120)
--- NOTE | 2023-05-22 19:42 | CT ---
EXAM: CT OF THE ABDOMEN PELVIS WITHOUT CONTRAST History: Upper abdominal pain. Comparison: CT abdomen pelvis 01/14/2018 Technique: Multiplanar CT images through the abdomen pelvis were obtained without the administration of IV contrast FINDINGS: Lung bases are clear. No acute osseous abnormalities. Status post cholecystectomy. The liver is fatty. No liver or splenic lesions. 9 mm rim calcified s plenic artery aneurysm No peripancreatic inflammation. Stable nonspecific central mesenteric strandi ng. No bowel obstruction. No renal stones and no hydronephrosis. No evidence for appendicitis. No bladder wall thickening. Postsurgical changes of the sigmoid colon. Colonic diverticulosis. No vanesa wel obstruction. Uterus is not seen likely has been surgically removed. No perirectal inflammation. No pathologic adenopathy. No abdominal aortic aneurysm. Impression: 1. No acute intra-abdominal or pelvic process. 2. Stable nonspecific central mesenteric inflammation. 3. Hepatic steatosis. 4. 9 mm rim calcified splenic artery aneurysm. 5. Colonic diverticulosis All CT scans are performed using dose optimization techniques as appropriate to the performed exam an d include at least one of the following: Automated exposure control, adjustment of the mA and/or kV according t o size, and the use of iterative reconstruction technique.
[2023-05-22] MEDS ORDERED: ASPIRIN CHEWABLE PO STA (20:08)
[2023-05-22 20:12] LABS: BASOPHILS # (AUTO) 0.1 K/uL (0-0.2); EOSINOPHILS # (AUTO) 0.2 K/ul (0.0-0.7); HEMATOCRIT 39.3 % (37.0-47.0); HEMOGLOBIN 13.2 g/dl (12.0-16.0); IMMATURE GRANULOCYTE % (AUTO) 0.3 % (0.0-5.0); LYMPHOCYTES # (AUTO) 3.7 K/uL (0.60-3.4); LYMPHOCYTES % (AUTO) 47.8 (10.0-50.0); MEAN CORPUSCULAR HEMOGLOBIN 29.6 pg (27.0-31.0); MEAN CORPUSCULAR HGB CONC 33.6 (31.8-35.4); MEAN CORPUSCULAR VOLUME 88.1 fl (81.0-99.0); MONOCYTES # (AUTO) 0.6 K/uL (0.4-2.0); MONOCYTES % (AUTO) 7.7 (0-10); NEUTROPHILS # (AUTO) 3.2 K/ul (2.0-6.9); NEUTROPHILS % (AUTO) 41.2 % (42.2-75.2); PLATELET COUNT 226 10^3/uL (140-440); RDW COEFFICIENT OF VARIATION 12.9 % (11.6-14.8); RED BLOOD COUNT 4.46 10^6/ul (4.20-5.40); WHITE BLOOD COUNT 7.81 K/ul (4.6-10.2)
[2023-05-22 20:21] LABS: PROTHROMBIN TIME 9.5 SEC (9.3-11.0)
[2023-05-22] MEDS: NITROSTAT SL PRN ×3 (21:27→22:10)
[2023-05-22 21:53] LABS: BILIRUBIN,URINE Negative (NEGATIVE); CLARITY,URINE Clear (CLEAR); COLOR,URINE Yellow (YELLOW); GLUCOSE, URINE (UA) Negative (NEGATIVE); KETONES,URINE Negative (NEGATIVE); LEUKOCYTE ESTERASE ,URINE Trace (NEGATIVE); NITRITE,URINE Negative (NEGATIVE); PROTEIN,URINE Negative (NEGATIVE); URINE, BLOOD Negative (NEGATIVE); UROBILINOGEN,URINE 0.2 (0.2)
[2023-05-22 21:54] LABS: SQUAMOUS EPITHELIAL CELL,UR 0-2 (0-5); URINE RBC, MICROSCOPIC 0-2 (0-2); URINE WBC, MICROSCOPIC 0-2 (0-2)
[2023-05-22] MEDS ORDERED: NITRO-BID TD STA (22:42)
[2023-05-22] MEDS ORDERED: SUBLIMAZE IVP ONE (23:01)
[2023-05-23] MEDS ORDERED: MYLANTA SUSP PO PRN (00:01)
[2023-05-23] MEDS ORDERED: TYLENOL PO PRN (00:01)
[2023-05-23] MEDS ORDERED: SUBLIMAZE IVP PRN (00:03)
[2023-05-23] MEDS ORDERED: ZOFRAN 4 MG/2 ML IVP PRN (00:03)
[2023-05-23] MEDS ORDERED: HYDRALAZINE HCL IVP PRN (00:08)
[2023-05-23] MEDS ORDERED: SUBLIMAZE IVP ONE (00:36)
[2023-05-23 01:55] LABS: SARS COV-2 RNA RAPID NAAT NEGATIVE (NEGATIVE)
[2023-05-23] MEDS: PEPCID IVP SCH ×2 (04:06→08:44)
[2023-05-23 04:15] VITALS: RESP 18; BMI 37.3
[2023-05-23 05:08] VITALS: BP 127/73; PULSE 65; TEMP 96.8
[2023-05-23 05:28] LABS: BASOPHILS # (AUTO) 0.1 K/uL (0-0.2); EOSINOPHILS # (AUTO) 0.1 K/ul (0.0-0.7); HEMATOCRIT 35.9 % (37.0-47.0); HEMOGLOBIN 11.9 g/dl (12.0-16.0); IMMATURE GRANULOCYTE % (AUTO) 0.5 % (0.0-5.0); LYMPHOCYTES # (AUTO) 1.9 K/uL (0.60-3.4); MEAN CORPUSCULAR HEMOGLOBIN 29.4 pg (27.0-31.0); MEAN CORPUSCULAR HGB CONC 33.1 (31.8-35.4); MEAN CORPUSCULAR VOLUME 88.6 fl (81.0-99.0); MONOCYTES # (AUTO) 0.4 K/uL (0.4-2.0); MONOCYTES % (AUTO) 6.9 (0-10); NEUTROPHILS # (AUTO) 3.6 K/ul (2.0-6.9); NEUTROPHILS % (AUTO) 58.6 % (42.2-75.2); PLATELET COUNT 178 10^3/uL (140-440); RED BLOOD COUNT 4.05 10^6/ul (4.20-5.40); WHITE BLOOD COUNT 6.06 K/ul (4.6-10.2)
[2023-05-23 05:39] LABS: ALANINE AMINOTRANSFERASE 26.1 U/L (0-35); ALBUMIN 3.94 g/dL (3.5-5.0); ALKALINE PHOSPHATASE 64.8 U/L (38-126); ASPARTATE AMINO TRANSFERASE 31.4 U/L (14-36); BILIRUBIN,TOTAL 0.6 mg/dL (0.2-1.3); BLOOD UREA NITROGEN 10.1 mg/dL (7-17); CALCIUM 8.41 mg/dL (8.4-10.2); CARBON DIOXIDE 28.3 mmol/L (22-30.0); CHLORIDE 104.3 mmol/L (98-107); CHOLESTEROL 147.5 mg/dL (0-200); CREATININE 0.73 mg/dL (0.60-1.30); GLUCOSE 113.9 mg/dL (74-106); HDL CHOLESTEROL 37.4 mg/dL (35-80); POTASSIUM 3.67 mmol/L (3.5-5.1); SODIUM 136.3 mmol/L (134.5-145); TOTAL PROTEIN 6.81 g/dL (6.3-8.2); TRIGLYCERIDES 108.9 mg/dL (0-150)
[2023-05-23] MEDS ORDERED: MYLANTA SUSP PO ONE (07:51)
[2023-05-23] MEDS ORDERED: PROTONIX IVP SCH (09:00)
--- NOTE | 2023-05-23 10:31 | PCM.SS ---
Provider Provider: LORENA ALMONTE, [facility] Ad[facility] Date Admission Date: 05/23/23 Discharge Date Discharge Date: 05/23/23 Primary Care Physician Primary Care Physician: JESSENIA JOSE Chief Complaint Reason For Visit: ACUTE CHEST PAIN History of Present Illness History of Present Illness: Admitted 05/23/23 02:10, this 53 year old /WHITE/F presented to the ER with epigastric pain/chest pain. Patient states pain started last night at approximately 5 pm and persisted. Denies any radiation. Describes the pain as burning. Did not resolve with treatment in the ER with nitro, fentanyl, zofran, or protonix. This am around 0730 patient was complaining of burning and epigastric discomfort. She was given mylanta and discomfort resolved. No further pain and requesting to go home. Reports she does it spicy foods on occasion but not on a daily basis. Denies any vomiting, diarrhea, fever, chills, SOB. [facility] Medical History Hypothyroidism E03.9 - Hypothyroidism, unspecified (ICD-10) IBS (irritable bowel syndrome) K58.9 - Irritable bowel syndrome without diarrhea (ICD-10) Surgical History H/O: hysterectomy Z90.710 - Acquired absence of both cervix and uterus (ICD-10) Hx of appendectomy Z90.49 - Acquired absence of other specified parts of digestive tract (ICD- 10) History of cholecystectomy Z90.49 - Acquired absence of other specified parts of digestive tract (ICD- 10) H/O hernia repair Z98.890 - Other specified postprocedural states (ICD-10) Z87.19 - Personal history of other diseases of the digestive system (ICD-10) Family History FATHER Myocardial infarct Diabetes Mother Myocardial infarct Diabetes Social History Smoking and tobacco status: Former smoker Alcohol intake: former Medications Mecications: Medications at Discharge (Home Meds & RX) omeprazole 20 mg capsule,delayed release 20 mg PO DAILY #30 caps 05/23/23 Allergies Allergies Allergy/AdvReac Type Severity Reaction Status Date / Time morphine AdvReac Vomiting Verified 05/22/23 18:24 Steri-strip AdvReac Rash Uncoded 05/22/23 18:24 Review of Systems Constitutional: Reports No symptoms Head: Reports Normocephalic Eyes: Reports No symptoms Ears: Reports No symptoms Nose: Reports No symptoms Mouth: Reports No symptoms Throat: Reports No symptoms Cardiovascular: Reports No symptoms Respiratory: Reports No symptoms Gastrointestinal: Reports Heartburn and Reflux Genitourinary: Reports No Symptoms Musculoskeletal: Reports No symptoms Endocrine: Reports No symptoms Hematology: Reports No symptoms Immunology: Reports No symptoms Neurological: Reports No symptoms Psychiatric: Reports No symptoms Physical Examination Appearance: Positive No Apparent Distress and Alert and Oriented x3 Head: Positive Normocephalic Eyes: Positive SAVANNA Neck: Positive Supple, Non-Tender and Trachea Midline Heart: Positive RRR and No Murmurs Respiratory: Positive Airway patent, Breath Sounds Clear, Bilaterally, Breath Sounds Equal and Respirations Nonlabored GI/: Positive Soft, Nontender, Bowel sounds normal and No Distention Extremities: Positive Pedal Pulses Palpable Bilaterally Neurological: Positive Normal Gait, Sensation Intact, Motor Intact, Reflexes Intact, Alert and Oriented Psychiatric: Positive Normal Judgement and Normal Insight Vital Signs (Last 4 Hours) Vital Signs Last 4 Hours: Vital Signs: Last 4 Hours 05/23/23 07:00 05/23/23 07:00 05/23/23 08:00 Oxygen Delivery Method Room Air Room Air Telemetry Type Remote Telemetry Telemetry Monitoring Continues Telemetry Heart Rate 49 L EKG MO Interval 0.17 EKG QRS Interval 0.03 L Telemetry Strip Reading SB 05/23/23 09:00 05/23/23 09:37 Oxygen Delivery Method Room Air Room Air Telemetry Type Telemetry Monitoring Telemetry Heart Rate EKG MO Interval EKG QRS Interval Telemetry Strip Reading Labs This Visit Labs This Visit: Labs This Visit 05/22/23 05/22/23 05/22/23 18:32 20:05 20:10 WBC 7.81 RBC 4.46 Hgb 13.2 Hct 39.3 MCV 88.1 MCH 29.6 MCHC 33.6 RDW Coeff of Giovana 12.9 Plt Count 226 Immature Gran % (Auto) 0.3 Neut % (Auto) 41.2 L Lymph % (Auto) 47.8 [facility] % (Auto) 7.7 Eos % (Auto) 2.0 Baso % (Auto) 1.0 Neut # (Auto) 3.2 Lymph # (Auto) 3.[address] [facility] # (Auto) 0.6 Eos # (Auto) 0.2 Baso # (Auto) 0.1 Immature Gran # (Auto) 0.0 PT 9.5 INR 0.91 Sodium 137.4 Potassium 3.77 Chloride 104.3 Carbon Dioxide 27.5 Anion Gap 9.37 BUN 11.3 Creatinine 0.68 Estimated GFR (MDRD) 91.00 BUN/Creatinine Ratio 16.61 Glucose 108.3 H Hemoglobin A1c Calcium 9.12 Total Bilirubin 0.55 AST 40.7 H ALT 30.4 Alkaline Phosphatase 91.0 Troponin I 0.064 Total Protein 7.92 Albumin 4.59 Globulin 3.33 Albumin/Globulin Ratio 1.37 Triglycerides Cholesterol LDL Cholesterol, Calc VLDL Cholesterol HDL Cholesterol Cholesterol/HDL Ratio Lipase 220.9 D-Dimer Urine Color Yellow Urine Clarity Clear Urine pH 7.0 Ur Specific [place] 1.020 Urine Protein Negative Urine Glucose (UA) Negative Urine Ketones Negative Urine Blood Negative Urine Nitrite Negative Urine Bilirubin Negative Urine Urobilinogen 0.2 Ur Leukocyte Esterase Trace H Urine Microscopic RBC 0-2 Urine Microscopic WBC 0-2 Ur Squamous Epith Cells 0-2 SARS CoV-2 RNA Rapid MEKHI 05/22/23 05/23/23 05/23/23 21:05 00:52 03:00 WBC RBC Hgb Hct MCV MCH MCHC RDW Coeff of Giovana Plt Count Immature Gran % (Auto) Neut % (Auto) Lymph % (Auto) [facility] % (Auto) Eos % (Auto) Baso % (Auto) Neut # (Auto) Lymph # (Auto) [facility] # (Auto) Eos # (Auto) Baso # (Auto) Immature Gran # (Auto) PT INR Sodium Potassium Chloride Carbon Dioxide Anion Gap BUN Creatinine Estimated GFR (MDRD) BUN/Creatinine Ratio Glucose Hemoglobin A1c Calcium Total Bilirubin AST ALT Alkaline Phosphatase Troponin I 0.065 0.053 Total Protein Albumin Globulin Albumin/Globulin Ratio Triglycerides Cholesterol LDL Cholesterol, Calc VLDL Cholesterol HDL Cholesterol Cholesterol/HDL Ratio Lipase D-Dimer 234.91 Urine Color Urine Clarity Urine pH Ur Specific [place] Urine Protein Urine Glucose (UA) Urine Ketones Urine Blood Urine Nitrite Urine Bilirubin Urine Urobilinogen Ur Leukocyte Esterase Urine Microscopic RBC Urine Microscopic WBC Ur Squamous Epith Cells SARS CoV-2 RNA Rapid MEKHI Negative 05/23/23 05:09 WBC 6.06 RBC 4.05 L Hgb 11.9 L Hct 35.9 L MCV 88.6 MCH 29.4 MCHC 33.1 RDW Coeff of Giovana 13.0 Plt Count 178 Immature Gran % (Auto) 0.5 Neut % (Auto) 58.6 Lymph % (Auto) 32.0 [facility] % (Auto) 6.9 Eos % (Auto) 1.0 Baso % (Auto) 1.0 Neut # (Auto) 3.6 Lymph # (Auto) 1.9 [facility] # (Auto) 0.4 Eos # (Auto) 0.1 Baso # (Auto) 0.1 Immature Gran # (Auto) 0.0 PT INR Sodium 136.3 Potassium 3.67 Chloride 104.3 Carbon Dioxide 28.3 Anion Gap 7.37 BUN 10.1 Creatinine 0.73 Estimated GFR (MDRD) 84.00 BUN/Creatinine Ratio 13.83 Glucose 113.9 H Hemoglobin A1c 4.68 Calcium 8.41 Total Bilirubin 0.60 AST 31.4 ALT 26.1 Alkaline Phosphatase 64.8 D Troponin I Total Protein 6.81 Albumin 3.94 Globulin 2.87 Albumin/Globulin Ratio 1.37 Triglycerides 108.9 Cholesterol 147.5 LDL Cholesterol, Calc 88 VLDL Cholesterol 22 HDL Cholesterol 37.4 Cholesterol/HDL Ratio 3.9 L Lipase D-Dimer Urine Color Urine Clarity Urine pH Ur Specific [place] Urine Protein Urine Glucose (UA) Urine Ketones Urine Blood Urine Nitrite Urine Bilirubin Urine Urobilinogen Ur Leukocyte Esterase Urine Microscopic RBC Urine Microscopic WBC Ur Squamous Epith Cells SARS CoV-2 RNA Rapid MEKHI Imaging Imaging: EXAM: SINGLE VIEW OF THE CHEST. History: Dyspnea. Comparison: Chest radiograph 06/03/2022 FINDINGS: Heart size is normal. No consolidation. No pleural fluid and no pneumothorax. No acute osseous abnormalities. Impression: Normal study Review Review Statement: I have independently reviewed and interpreted the labs/EKGs/imaging that were ordered by the ER provider. I have reviewed all outside records that are available currently in our EMR including imaging/notes/labs from previous visits. Plan Reccomendations/Plan: 1. Chest pain - serial troponins negative, EKG with no acute findings. Lipid panel within normal limits. Pain resolved with mylanta. 2. GERD - mylanta resolved symptoms, d/c with omeprazole Additional Planning: Case discussed with ED Physician, Dr. Wright. DVT Prophylaxis: Up ad lesly Advanced [facility] Plannin minutes spent discussing advance care planning. Disposition: Admit to: Med/surg Observation If patient discharged with Left Ventricular Systolic Dysfunction: NA Discharged with a beta pietro? [] If no, why not? [] Discharged with an dale/arb? [] If no, why not? [] Regular diet - avoid spicy and acidic foods Activity as tolerated Follow-up with PCP later this week. New Medication: Omeprazole 20 mg daily in the morning before your first meal of the day DX: GERD Review With Patient Reviewed with Patient and Family: Patient and family have been counseled on condition and care plan and have no immediate questions. I have personally discussed and reviewed the patient's visit/current labs/imaging/decision making with Dr. Chris Levin, my supervising attending. Total number of minutes spent with patient 85 min. More than 50% of the time spent with this patient was devoted to counseling and coordination of care. Time of Admission:05/23/23 02:10 Time of Discharge: 05/23/23 10:05 Discharge Plan Discharge Discharge Orders: Discharge Patient (ONCE); Ordered 05/23/23 Ordered By: JANETT TORRES Activity Restrictions/Additional Instructions: Regular diet - avoid spicy and acidic foods Activity as tolerated Follow-up with PCP later this week. New Medication: Omeprazole 20 mg daily in the morning before your first meal of the day Instructions: Diet for Stomach Ulcers and Gastritis (GEN), GERD (Gastroesophageal Reflux Disease) (GEN) Care Plan Goals: Problem: Alteration in Comfort/Pain Goal: Manage pain at a tolerable level Instructions: Monitor character, location and intensity Express expectations of pain relief Pain medication as ordered Position for maximal comfort Pain management prior to activities Patient Disposition: HOME SELF-CARE Prescriptions: New omeprazole 20 mg capsule,delayed release(DR/EC) 20 mg PO DAILY Qty: 30 0RF Did you review [place] HAND BLOCKER for ALL controlled substances?: No Discussed opioids are addictive and Narcan is available by prescription or from pharmacy.: No Condition: Fair
== END 2023-05-23 10:05 | disposition home or self-care (01) ==
LOC: ED 18:05 → MEDSURG B 18:05
PROVIDERS: ADMIT Physician Assistant; ATTEND Nurse Practitioner Family